=== PATIENT | female | born 1985 | race Caucasian/White ===

== ENCOUNTER 2016-07-29 09:34 | Day surgery (SDC) | payer MEDICAID ==
[~2016-07-29] VITALS: Ht 165.1 cm; Wt 91.2 kg
[~2016-07-29 09:34] MED LIST: 0.9% Sodium Chloride 1,000 ML IV SCH; ASCO-294 PO; CHOL200025 PO; DIPH50C PO; FLUT16SP NS; IBUP400T22 PO; OMEG500C PO; P EP PO; PEPS1TAB11 PO; POLY17PO6 PO; ROB500 PO; Sodium Chloride LOK Flush 10 mL Syringe IV PRN; TURM500C7 PO; VIT1TABL83 PO; fentaNYL-PF 50 mCg/mL 2 mL Inj IVPUSH PRN
[2016-07-29 10:35] VITALS: BP 123/77; PULSE 71; O2SAT 100
== END 2016-07-29 23:59 | disposition home or self-care (01) ==
LOC: END 09:34
PROVIDERS: ATTEND Internal Medicine Gastroenterology
DX: R11.0 Nausea (principal); Z53.8 Procedure and treatment not carried out for other reasons